=== PATIENT | male | born 1975 | race Caucasian/White ===

== ENCOUNTER 2020-03-09 08:03 | Day surgery (SDC) | payer BC, MEDICAID ==
[2020-03-09] MEDS ORDERED: Midazolam 1 MG/ML 2 ML SDV ONE (08:09)
[2020-03-09] MEDS ORDERED: Propofol 200 MG/20 ML SDV ONE (08:09)
[2020-03-09] MEDS ORDERED: fentaNYL 100 MCG/2 ML SDV ONE (08:09)
[2020-03-09] MEDS ORDERED: Sodium Chloride 0.9% 1,000 ML IV SCH (08:15)
[2020-03-09 10:39] VITALS: BP 109/68; PULSE 55
--- NOTE | 2020-03-09 13:32 | OR ---
DATE OF PROCEDURE: 03/09/2020 SURGEON: Raul Maria MD PROCEDURE: Colonoscopy. FINDINGS: Normal colonoscopy. PREOPERATIVE DIAGNOSIS: Screening colonoscopy. POSTOPERATIVE DIAGNOSIS: Screening colonoscopy. RISKS: Risks, benefits, alternatives, and limitations including, but not limited to, infection, bleeding, and perforation were explained to the patient, who wished to proceed. PROCEDURE IN DETAIL: The patient was placed in the left lateral decubitus position. Digital rectal exam was performed without abnormality. Scope was introduced and advanced atraumatically to the ileocecal valve. The scope was brought back through the ascending, transverse, descending colon, and retroflexed. No masses. No polyps. No old or new blood. The patient did have mild external hemorrhoids, which could be a source of the bleeding. However, this is indeterminable due to no blood today. No abnormalities on retroflex. The patient tolerated the procedure well. Raul Maria MD /[id number]
== END 2020-03-09 11:01 | disposition home or self-care (01) ==
LOC: JP.SDS 08:03
PROVIDERS: ATTEND Surgery
DX: K64.4 Residual hemorrhoidal skin tags (principal); J45.909 Unspecified asthma, uncomplicated; Z88.0 Allergy status to penicillin; Z88.6 Allergy status to analgesic agent
CPT/HCPCS: 45378; J2250; J2704; J3010; J7030